=== PATIENT | male | born 1990 | race Asian ===

== ENCOUNTER 2022-06-30 12:55 | Emergency (ER) | payer OTHER ==
[~2022-06-30] VITALS: Ht 170.2 cm; Wt 86.2 kg
[2022-06-30 13:17] VITALS: BP 154/89; TEMP 98.3
[2022-06-30 14:05] LABS: PLATELET COUNT 218 K/uL (142-355)
[2022-06-30 14:31] LABS: POTASSIUM 3.9 mmol/L (3.6-5.2)
== END 2022-06-30 15:35 | disposition home or self-care (01) ==
LOC: ED 12:55
PROVIDERS: Emergency Medicine
DX: R10.12 Left upper quadrant pain (principal)
CPT/HCPCS: 36415; 80053; 81000; 83690; 85027; 96374; 96375; 99283; J1885; J2405